=== PATIENT | male | born 1945 | race Caucasian/White ===

== ENCOUNTER 2017-11-14 22:12 | Emergency (ER) | payer OTHER ==
[~2017-11-14] VITALS: Ht 177.8 cm; Wt 83.2 kg
[2017-11-15 01:49] VITALS: BP 147/90
== END 2017-11-15 01:49 | disposition home or self-care (01) ==
LOC: EME 22:12
DX: R09.89 Other specified symptoms and signs involving the circulatory and respiratory systems (principal); I10 Essential (primary) hypertension; R73.03 Prediabetes
CPT/HCPCS: 70360; 71046; 80053; 85027; 99281; 99284